=== PATIENT | female | born 1955 | race Caucasian/White ===

== ENCOUNTER 2018-07-25 13:15 | Outpatient (REF) | payer MEDICAID, SELFPAY | END 2018-07-25 13:35 | LOC: NCHCN 13:15 | PROVIDERS: PCP Nurse Practitioner Family; Visit Provider Nurse Practitioner Family | DX: N39.0 Urinary tract infection, site not specified (principal) | CPT/HCPCS: 87077; 87086; 87186 ==

== ENCOUNTER 2018-08-11 15:07 | Outpatient (REF) | payer MEDICAID, SELFPAY ==
[2018-08-11 21:24] LABS: Abs Immature Grans 0.01 k/cumm (0.0-0.09); Absolute Basophil Count 0.04 k/cumm (0.0-0.2); Absolute Eosinophil Count 0.23 k/cumm (0.0-0.7); Absolute Lymphocyte Count 3.81 k/cumm (1.2-3.4); Absolute Neutrophil Count 3.49 k/cumm (1.2-6.7); Basophils % 0.5; Eosinophils % 2.8; HCT 36.5 % (36.0-46.0); HGB 11.5 g/dL (12.0-15.5); Immature Grans % 0.1; Lymphocytes % 46.6; Mean Corp. HGB Concentration 31.5 g/dL (32.0-36.0); Mean Corpuscular Hemoglobin 28.3 pg (27.0-33.0); Mean Corpuscular Volume 89.9 fL (80-95); Mean Platelet Volume 11.6 fL (8.0-11.0); Monocytes % 7.3; Neutrophils % 42.7; Platelet Count 273 x1000/uL (130-400); RBC 4.06 m/cumm (4.00-5.20); RBC Distribution Width 14.6 % (11.7-14.6); White Blood Cell Count 8.18 k/cumm (4.4-10.8)
[2018-08-11 21:34] LABS: ALT 31 U/L (12-78); AST 50 U/L (15-37); Albumin 3.4 g/dL (3.4-5.0); Alkaline Phosphatase 115 U/L (46-116); Anion Gap 8.7 mmol/L (3-11); BUN 28 mg/dL (7-18); Bilirubin, Total 0.4 mg/dL (0.2-1.0); CO2 27.3 mmol/L (21.0-32.0); CREATININE 1.27 mg/dL (0.55-1.02); Chloride 106 mmol/L (98-107); Estimated GFR 42.78 (mL/min/1.73m2); Glucose 111 mg/dL (70-100); Lipase 182 U/L (73-393); Potassium 4.4 mmol/L (3.5-5.1); Sodium 142 mmol/L (136-145); Total Protein 7.2 g/dL (6.4-8.2)
== END 2018-08-11 15:27 ==
LOC: NCHCN 15:07
PROVIDERS: PCP Nurse Practitioner Family; Visit Provider Nurse Practitioner Family
DX: R10.11 Right upper quadrant pain (principal)
CPT/HCPCS: 80053; 83690; 87077; 85025; 87086; 87186

== ENCOUNTER 2018-10-11 13:59 | Outpatient (REF) | payer MEDICAID, SELFPAY | END 2018-10-11 14:19 | LOC: NCHCN 13:59 | PROVIDERS: PCP Nurse Practitioner Family; Visit Provider Family Medicine | DX: N39.0 Urinary tract infection, site not specified (principal); R30.0 Dysuria | CPT/HCPCS: 87077; 87086; 87186 ==

== ENCOUNTER 2019-01-28 14:49 | Outpatient (REF) | payer MEDICAID, SELFPAY | END 2019-01-28 15:09 | LOC: NCHCN 14:49 | PROVIDERS: PCP Nurse Practitioner Family; Visit Provider Family Medicine | DX: N39.0 Urinary tract infection, site not specified (principal) | CPT/HCPCS: 87077; 87086; 87186 ==

== ENCOUNTER 2019-04-26 14:23 | Outpatient (REF) | payer MEDICAID, SELFPAY ==
[2019-04-26 22:24] LABS: ALT 29 U/L (12-78); AST 46 U/L (15-37); Albumin 3.3 g/dL (3.4-5.0); Alkaline Phosphatase 112 U/L (46-116); Anion Gap 9.3 mmol/L (3-11); BUN 24 mg/dL (7-18); Bilirubin, Total 0.4 mg/dL (0.2-1.0); CO2 27.7 mmol/L (21.0-32.0); CREATININE 1.22 mg/dL (0.55-1.02); Chloride 104 mmol/L (98-107); Estimated GFR 44.66 (mL/min/1.73m2); Glucose 240 mg/dL (70-100); Potassium 4.6 mmol/L (3.5-5.1); Sodium 141 mmol/L (136-145); Total Protein 7.4 g/dL (6.4-8.2); Vitamin B12 406 pg/mL (193-986)
== END 2019-04-26 14:43 ==
LOC: NCHCN 14:23
PROVIDERS: PCP Nurse Practitioner Family; Visit Provider Registered Nurse
DX: R82.90 Unspecified abnormal findings in urine (principal); F39 Unspecified mood [affective] disorder
CPT/HCPCS: 80053; 87077; 82607; 84443; 87086; 87186

== ENCOUNTER 2019-08-30 22:39 | Outpatient (REF) | payer MEDICAID, SELFPAY | END 2019-08-30 22:59 | LOC: NCHCN 22:39 | PROVIDERS: PCP Nurse Practitioner Family; Visit Provider Family Medicine | DX: N39.0 Urinary tract infection, site not specified (principal) | CPT/HCPCS: 87077; 87086; 87186 ==

== ENCOUNTER 2019-10-29 17:35 | Outpatient (REF) | payer MEDICAID, SELFPAY ==
[2019-10-29 21:57] LABS: Anion Gap 7.4 mmol/L (3-11); BUN 28 mg/dL (7-18); CO2 29.6 mmol/L (21.0-32.0); CREATININE 1.22 mg/dL (0.55-1.02); Chloride 103 mmol/L (98-107); Estimated GFR 44.66 (mL/min/1.73m2); Glucose 159 mg/dL (74-106); Potassium 4.5 mmol/L (3.5-5.1); Sodium 140 mmol/L (136-145); Uric Acid 9.5 mg/dL (2.6-6.0)
[2019-10-29 22:22] LABS: ESR 73 mm/hr (0-30)
== END 2019-10-29 17:55 ==
LOC: NCHCN 17:35
PROVIDERS: PCP Nurse Practitioner Family; Visit Provider Nurse Practitioner Family
DX: N39.0 Urinary tract infection, site not specified (principal); R30.9 Painful micturition, unspecified; M1A.00X0 Idiopathic chronic gout, unspecified site, without tophus (tophi)
CPT/HCPCS: 80048; 85652; 87077; 84550; 86140; 87086; 87186

== ENCOUNTER 2019-11-22 17:07 | Outpatient (REF) | payer MEDICAID, SELFPAY ==
[2019-11-22 21:51] LABS: Bacteria Many HPF (Negative); C & S Indicated? C&S Done As Ordered; Epithelial Cells Few HPF (Negative); RBC 0-2 HPF (0-2); WBC 20-50 HPF (0-5)
== END 2019-11-22 17:27 ==
LOC: NCHCN 17:07
PROVIDERS: PCP Nurse Practitioner Family; Visit Provider Registered Nurse
DX: N39.0 Urinary tract infection, site not specified (principal)
CPT/HCPCS: 87077; 81015; 87086; 87186

== ENCOUNTER 2019-12-26 12:00 | Outpatient (REF) | payer MEDICAID, SELFPAY | END 2019-12-26 12:20 | LOC: NCHCN 12:00 | PROVIDERS: PCP Nurse Practitioner Family; Visit Provider Internal Medicine | DX: R30.0 Dysuria (principal) | CPT/HCPCS: 87077; 87086; 87186 ==

== ENCOUNTER 2020-01-09 14:53 | Outpatient (REF) | payer MEDICAID, SELFPAY ==
[2020-01-09 21:22] LABS: Anion Gap 7.9 mmol/L (3-11); BUN 18 mg/dL (7-18); CO2 28.1 mmol/L (21.0-32.0); CREATININE 1.32 mg/dL (0.55-1.02); Calcium 8.9 mg/dL (8.5-10.1); Chloride 104 mmol/L (98-107); Estimated GFR 40.65 (mL/min/1.73m2); Glucose 205 mg/dL (74-106); Potassium 4.1 mmol/L (3.5-5.1); Sodium 140 mmol/L (136-145)
== END 2020-01-09 15:13 ==
LOC: NCHCN 14:53
PROVIDERS: PCP Nurse Practitioner Family; Visit Provider Nurse Practitioner Family
DX: I10 Essential (primary) hypertension (principal)
CPT/HCPCS: 80048

== ENCOUNTER 2020-01-21 12:42 | Outpatient (REF) | payer MEDICAID, SELFPAY ==
[2020-01-21 20:42] LABS: Anion Gap 6.9 mmol/L (3-11); BUN 14 mg/dL (7-18); CO2 28.1 mmol/L (21.0-32.0); Calcium 8.4 mg/dL (8.5-10.1); Chloride 106 mmol/L (98-107); Estimated GFR 50.17 (mL/min/1.73m2); Glucose 142 mg/dL (74-106); Potassium 4.3 mmol/L (3.5-5.1); Sodium 141 mmol/L (136-145)
== END 2020-01-21 13:02 ==
LOC: NCHCN 12:42
PROVIDERS: PCP Nurse Practitioner Family; Visit Provider Nurse Practitioner Family
DX: I10 Essential (primary) hypertension (principal)
CPT/HCPCS: 80048

== ENCOUNTER 2020-03-27 22:56 | Outpatient (REF) | payer MEDICAID, SELFPAY ==
[2020-03-27 21:13] LABS: HCT 38.5 % (36.0-46.0); HGB 12.1 g/dL (12.0-15.5); Mean Corp. HGB Concentration 31.4 g/dL (32.0-36.0); Mean Corpuscular Hemoglobin 27.8 pg (27.0-33.0); Mean Corpuscular Volume 88.5 fL (80-95); Mean Platelet Volume 11.3 fL (8.0-11.0); Platelet Count 302 x1000/uL (130-400); RBC 4.35 m/cumm (4.00-5.20); RBC Distribution Width 15.5 % (11.7-14.6); White Blood Cell Count 10.94 k/cumm (4.4-10.8)
[2020-03-27 21:26] LABS: ALT 30 U/L (14-59); AST 140 U/L (15-37); Albumin 3.4 g/dL (3.4-5.0); Alkaline Phosphatase 96 U/L (46-116); Anion Gap 8.5 mmol/L (3-11); BUN 25 mg/dL (7-18); Bilirubin, Total 0.6 mg/dL (0.2-1.0); CO2 28.5 mmol/L (21.0-32.0); CREATININE 1.36 mg/dL (0.55-1.02); Chloride 102 mmol/L (98-107); Estimated GFR 39.27 (mL/min/1.73m2); Glucose 168 mg/dL (74-106); NT-proBNP 163 pg/mL (<300); Potassium 4.6 mmol/L (3.5-5.1); Sodium 139 mmol/L (136-145); Total Protein 7.6 g/dL (6.4-8.2)
== END 2020-03-27 23:16 ==
LOC: NCHCN 22:56
PROVIDERS: PCP Nurse Practitioner Family; Visit Provider Registered Nurse
DX: R60.9 Edema, unspecified (principal); N18.3 Chronic kidney disease, stage 3 (moderate); H35.039 Hypertensive retinopathy, unspecified eye
CPT/HCPCS: 80053; 85027; 83880

== ENCOUNTER 2020-04-14 13:56 | Outpatient (REF) | payer MEDICAID, SELFPAY ==
[2020-04-14 21:24] LABS: Anion Gap 7.7 mmol/L (3-11); BUN 23 mg/dL (7-18); CO2 30.3 mmol/L (21.0-32.0); CREATININE 1.22 mg/dL (0.55-1.02); Calcium 8.8 mg/dL (8.5-10.1); Chloride 103 mmol/L (98-107); Estimated GFR 44.52 (mL/min/1.73m2); Glucose 188 mg/dL (74-106); Sodium 141 mmol/L (136-145)
== END 2020-04-14 14:16 ==
LOC: NCHCN 13:56
PROVIDERS: PCP Nurse Practitioner Family; Visit Provider Family Medicine
DX: I10 Essential (primary) hypertension (principal)
CPT/HCPCS: 80048

== ENCOUNTER 2020-05-09 20:28 | Outpatient (REF) | payer MEDICAID, SELFPAY | END 2020-05-09 20:48 | LOC: NCHCN 20:28 | PROVIDERS: PCP Nurse Practitioner Family; Visit Provider Family Medicine | DX: R30.9 Painful micturition, unspecified (principal) | CPT/HCPCS: 87077; 87086; 87186 ==

== ENCOUNTER 2020-05-16 15:19 | Outpatient (REF) | payer MEDICAID, SELFPAY | END 2020-05-16 15:39 | LOC: NCHCN 15:19 | PROVIDERS: PCP Nurse Practitioner Family; Visit Provider Family Medicine | DX: N39.0 Urinary tract infection, site not specified (principal) | CPT/HCPCS: 87086 ==

== ENCOUNTER 2020-05-30 13:12 | Outpatient (REF) | payer MEDICAID, SELFPAY ==
[2020-05-30 23:51] LABS: Bacteria Many HPF (Negative); C & S Indicated? C&S Done As Ordered; Crystals Negative HPF (Negative); Epithelial Cells Rare HPF (Negative); Mucus Negative (Negative)
== END 2020-05-30 13:32 ==
LOC: NCHCN 13:12
PROVIDERS: PCP Nurse Practitioner Family; Visit Provider Registered Nurse
DX: N39.0 Urinary tract infection, site not specified (principal); R30.9 Painful micturition, unspecified
CPT/HCPCS: 87077; 81015; 87086; 87186

== ENCOUNTER 2020-07-23 14:33 | Outpatient (REF) | payer MEDICAID, SELFPAY ==
[2020-07-26 21:57] LABS: Patient Race White; SARS-CoV-2 RNA Undetected (Undetected); SARS-CoV-2 Specimen Source Nasal
== END 2020-07-23 14:53 ==
LOC: NCHCN 14:33
PROVIDERS: PCP Nurse Practitioner Family; Visit Provider Family Medicine
DX: R05 Cough (principal)
CPT/HCPCS: U0003

== ENCOUNTER 2020-07-30 11:15 | Outpatient (REF) | payer MEDICAID, SELFPAY ==
[2020-07-30 22:16] LABS: COMMENT (LAB VIEW ONLY) 128.27 mg/dL; Microalb ug/mg Crea 33.1 ug/mg Cr
== END 2020-07-30 11:35 ==
LOC: NCHCN 11:15
PROVIDERS: PCP Nurse Practitioner Family; Visit Provider Family Medicine
DX: E11.8 Type 2 diabetes mellitus with unspecified complications (principal); I10 Essential (primary) hypertension
CPT/HCPCS: 82043; 82570

== ENCOUNTER 2020-09-19 22:39 | Outpatient (REF) | payer MEDICAID, SELFPAY ==
[2020-09-19 20:53] LABS: Anion Gap 10.2 mmol/L (3-11); BUN 26 mg/dL (7-18); CO2 25.8 mmol/L (21.0-32.0); CREATININE 1.38 mg/dL (0.55-1.02); Calcium 8.7 mg/dL (8.5-10.1); Calculated LDL 211 mg/dL (<100); Chloride 101 mmol/L (98-107); Cholesterol 283 mg/dL (<200); Estimated GFR 38.61 (mL/min/1.73m2); Glucose 115 mg/dL (74-106); HDL Cholesterol 40 mg/dL (40-60); Sodium 137 mmol/L (136-145); Triglyceride 164 mg/dL (<150)
== END 2020-09-19 22:59 ==
LOC: NCHCN 22:39
PROVIDERS: PCP Family Medicine; Visit Provider Family Medicine
DX: E78.5 Hyperlipidemia, unspecified (principal); E11.8 Type 2 diabetes mellitus with unspecified complications
CPT/HCPCS: 80048; 80061

== ENCOUNTER 2021-03-19 16:04 | Outpatient (REF) | payer MEDICAID, SELFPAY ==
[2021-03-19 20:30] LABS: HCT 36.9 % (36.0-46.0); HGB 11.6 g/dL (11.2-15.7); MCH 28.5 pg (27.0-33.0); MCHC 31.4 % (32.0-36.0); MCV 90.7 fL (80-95); MPV 11.6 fL (8.0-11.0); Platelet Count 296 10^3/uL (130-400); RBC 4.07 10^6/uL (3.93-5.22); RDW 15.1 % (11.7-14.6); RDW-SD 49.7 fL; WBC 10.76 10^3/uL (4.4-10.8)
== END 2021-03-19 16:05 | disposition home or self-care (01) ==
LOC: NCHCN 16:04
PROVIDERS: PCP Family Medicine; Visit Provider Nurse Practitioner Family
DX: N93.9 Abnormal uterine and vaginal bleeding, unspecified (principal)
CPT/HCPCS: 85027

== ENCOUNTER 2021-03-23 17:23 | Outpatient (REF) | payer MEDICAID, SELFPAY ==
[2021-03-23 22:03] LABS: Iron 37 ug/dL (50-170)
== END 2021-03-23 17:24 | disposition home or self-care (01) ==
LOC: NCHCN 17:23
PROVIDERS: PCP Family Medicine; Visit Provider Family Medicine
DX: D64.9 Anemia, unspecified (principal); N93.9 Abnormal uterine and vaginal bleeding, unspecified
CPT/HCPCS: 83540

== ENCOUNTER 2021-04-28 16:47 | Outpatient (REF) | payer MEDICAID, SELFPAY ==
[2021-04-28 21:21] LABS: HCT 36.5 % (36.0-46.0); HGB 11.3 g/dL (11.2-15.7); MCV 90.6 fL (80-95); MPV 11.8 fL (8.0-11.0); Platelet Count 274 10^3/uL (130-400); RBC 4.03 10^6/uL (3.93-5.22); RDW-SD 53.4 fL; WBC 13.16 10^3/uL (4.4-10.8)
[2021-04-28 22:28] LABS: Anion Gap 10.4 mmol/L (3-11); BUN 20 mg/dL (7-18); CO2 26.6 mmol/L (21.0-32.0); CREATININE 1.5 mg/dL (0.55-1.02); Calcium 9.1 mg/dL (8.5-10.1); Calculated LDL 114 mg/dL (<100); Chloride 107 mmol/L (98-107); Cholesterol 186 mg/dL (<200); Estimated GFR 34.96 (mL/min/1.73m2); Glucose 128 mg/dL (74-106); HDL Cholesterol 33 mg/dL (40-60); Potassium 4.3 mmol/L (3.5-5.1); Sodium 144 mmol/L (136-145); Triglyceride 197 mg/dL (<150)
[2021-04-28 23:45] LABS: Iron 46 ug/dL (50-170); Total Iron Binding Capacity 303 ug/dL (250-450); Transferrin Sat 15 % (15-50)
== END 2021-04-28 16:48 | disposition home or self-care (01) ==
LOC: NCHCN 16:47
PROVIDERS: PCP Family Medicine; Visit Provider Family Medicine
DX: E78.5 Hyperlipidemia, unspecified (principal); R31.9 Hematuria, unspecified; I10 Essential (primary) hypertension
CPT/HCPCS: 80048; 80061; 85027; 83540; 83550

== ENCOUNTER 2021-06-30 23:08 | Outpatient (REF) | payer MEDICAID, SELFPAY ==
[2021-06-30 22:55] LABS: COMMENT (LAB VIEW ONLY) 48.57 mg/dL; Microalb ug/mg Crea 11.3 ug/mg Cr
== END 2021-06-30 23:09 | disposition home or self-care (01) ==
LOC: NCHCN 23:08
PROVIDERS: PCP Family Medicine; Visit Provider Family Medicine
DX: E11.8 Type 2 diabetes mellitus with unspecified complications (principal); R80.9 Proteinuria, unspecified
CPT/HCPCS: 82043; 82570

== ENCOUNTER 2021-08-11 21:32 | Outpatient (REF) | payer MEDICAID, SELFPAY | END 2021-08-11 21:33 | disposition home or self-care (01) | LOC: NCHCN 21:32 | PROVIDERS: PCP Family Medicine; Visit Provider Family Medicine | DX: R30.0 Dysuria (principal); R31.9 Hematuria, unspecified | CPT/HCPCS: 87077; 87086; 87186 ==

== ENCOUNTER 2021-08-24 16:33 | Outpatient (REF) | payer MEDICAID, SELFPAY ==
[2021-08-24 22:14] LABS: Uric Acid 6.4 mg/dL (2.6-6.0)
== END 2021-08-24 16:34 | disposition home or self-care (01) ==
LOC: NCHCN 16:33
PROVIDERS: PCP Family Medicine; Visit Provider Family Medicine
DX: M1A.09X0 Idiopathic chronic gout, multiple sites, without tophus (tophi) (principal)
CPT/HCPCS: 84550

== ENCOUNTER 2021-09-30 16:09 | Outpatient (REF) | payer MEDICAID, SELFPAY ==
[2021-09-30 21:50] LABS: Anion Gap 5.9 mmol/L (3-11); BUN 21 mg/dL (7-18); CO2 29.1 mmol/L (21.0-32.0); CREATININE 1.3 mg/dL (0.55-1.02); Calcium 8.9 mg/dL (8.5-10.1); Chloride 106 mmol/L (98-107); Estimated GFR 41.24 (mL/min/1.73m2); Glucose 292 mg/dL (74-106); Potassium 4.3 mmol/L (3.5-5.1); Sodium 141 mmol/L (136-145)
== END 2021-09-30 16:10 | disposition home or self-care (01) ==
LOC: NCHCN 16:09
PROVIDERS: PCP Family Medicine; Visit Provider Registered Nurse
DX: I10 Essential (primary) hypertension (principal)
CPT/HCPCS: 80048

== ENCOUNTER 2022-04-07 16:09 | Outpatient (REF) | payer MEDICARE, MEDICAID, SELFPAY ==
[2022-04-07 15:47] LABS: ALT 26 U/L (14-59); AST 57 U/L (15-37); Albumin 3.1 g/dL (3.4-5.0); Alkaline Phosphatase 94 U/L (46-116); Anion Gap 6.3 mmol/L (3-11); BUN 21 mg/dL (7-18); Bilirubin, Total 0.5 mg/dL (0.2-1.0); CO2 28.7 mmol/L (21.0-32.0); CREATININE 1.3 mg/dL (0.55-1.02); Calcium 8.7 mg/dL (8.5-10.1); Calculated LDL 189 mg/dL (<100); Chloride 101 mmol/L (98-107); Cholesterol 271 mg/dL (<200); Estimated GFR 41.11 (mL/min/1.73m2); Glucose 378 mg/dL (74-106); HDL Cholesterol 40 mg/dL (40-60); Potassium 4.2 mmol/L (3.5-5.1); Sodium 136 mmol/L (136-145); Total Protein 7.5 g/dL (6.4-8.2); Triglyceride 211 mg/dL (<150)
== END 2022-04-07 16:10 | disposition home or self-care (01) ==
LOC: NCHCN 16:09
PROVIDERS: PCP Family Medicine; Visit Provider Family Medicine
DX: E78.5 Hyperlipidemia, unspecified (principal); N18.30 Chronic kidney disease, stage 3 unspecified; E11.8 Type 2 diabetes mellitus with unspecified complications; E66.01 Morbid (severe) obesity due to excess calories
CPT/HCPCS: 80053; 80061; 84443

== ENCOUNTER 2022-06-18 20:07 | Outpatient (REF) | payer MEDICARE, MEDICAID, SELFPAY ==
[2022-06-18 14:58] LABS: HCT 38.4 % (36.0-46.0); HGB 11.9 g/dL (11.2-15.7); MCH 28.5 pg (27.0-33.0); MCV 92 fL (80-95); MPV 10.8 fL (8.0-11.0); Platelet Count 274 10^3/uL (130-400); RBC 4.17 10^6/uL (3.93-5.22); RDW 13.6 % (11.7-14.6); RDW-SD 46.2 fL; WBC 8.42 10^3/uL (4.4-10.8)
[2022-06-18 15:10] LABS: Iron 59 ug/dL (50-170); Total Iron Binding Capacity 255 ug/dL (250-450); Transferrin Sat 23 % (15-50)
[2022-06-18 15:36] LABS: Hemoglobin A1C 11.6 % (<5.7)
[2022-06-18 15:48] LABS: ALT 25 U/L (14-59); AST 59 U/L (15-37); Alkaline Phosphatase 87 U/L (46-116); BUN 20 mg/dL (7-18); Bilirubin, Total 0.5 mg/dL (0.2-1.0); CREATININE 1.3 mg/dL (0.55-1.02); Calcium 8.6 mg/dL (8.5-10.1); Chloride 104 mmol/L (98-107); Estimated GFR 45.63 (mL/min/1.73m2); Ferritin 75 ng/mL (8-252); Glucose 218 mg/dL (74-106); Magnesium 1.9 mg/dL (1.8-2.4); Potassium 4.1 mmol/L (3.5-5.1); Sodium 142 mmol/L (136-145); Total Protein 7.9 g/dL (6.4-8.2); Vitamin B12 294 pg/mL (193-986)
[2022-06-21 11:24] LABS: Transferrin 220 mg/dL (201-352)
== END 2022-06-18 20:08 | disposition home or self-care (01) ==
LOC: NCHCN 20:07
PROVIDERS: PCP Family Medicine; Visit Provider Family Medicine
DX: E11.8 Type 2 diabetes mellitus with unspecified complications (principal); R30.0 Dysuria; D64.9 Anemia, unspecified; E11.40 Type 2 diabetes mellitus with diabetic neuropathy, unspecified; E66.01 Morbid (severe) obesity due to excess calories
CPT/HCPCS: 80053; 85027; 87077; 82607; 82728; 83036; 83540; 83550; 83735; 84466; 87086; 87186

== ENCOUNTER 2022-07-12 16:14 | Outpatient (REF) | payer MEDICARE, MEDICAID, SELFPAY | END 2022-07-12 16:15 | disposition home or self-care (01) | LOC: NCHCN 16:14 | PROVIDERS: PCP Family Medicine; Visit Provider Nurse Practitioner Family | DX: N39.0 Urinary tract infection, site not specified (principal) | CPT/HCPCS: 87077; 87086; 87186 ==

== ENCOUNTER 2022-08-12 13:56 | Outpatient (REF) | payer MEDICARE, MEDICAID, SELFPAY ==
[2022-08-12 21:51] LABS: Bilirubin Negative (Negative); Blood Trace-intact (Negative); Clarity Cloudy (Clear); Glucose 100 mg/dL (Negative); Ketones Negative (Negative); Leukocyte Esterase Trace (Negative); Nitrite Negative (Negative); Urobilinogen 0.2 EU/dL (Up TO 0.2)
[2022-08-12 22:00] LABS: Bacteria Many HPF (Negative); C & S Indicated? Yes; Casts Negative LPF (Negative); Crystals Negative HPF (Negative); Epithelial Cells Few HPF (Negative); Mucus Negative (Negative); RBC 0-2 HPF (0-2)
== END 2022-08-12 13:57 | disposition home or self-care (01) ==
LOC: NCHCN 13:56
PROVIDERS: PCP Family Medicine; Visit Provider Family Medicine
DX: R31.9 Hematuria, unspecified (principal); R30.9 Painful micturition, unspecified
CPT/HCPCS: 87077; 81003; 81015; 87086; 87186

== ENCOUNTER 2022-08-20 18:16 | Outpatient (REF) | payer MEDICARE, MEDICAID, SELFPAY | END 2022-08-20 18:17 | disposition home or self-care (01) | LOC: NCHCN 18:16 | PROVIDERS: PCP Family Medicine; Visit Provider Family Medicine | DX: N39.0 Urinary tract infection, site not specified (principal) | CPT/HCPCS: 87086 ==

== ENCOUNTER 2022-12-17 12:14 | Outpatient (REF) | payer MEDICARE, MEDICAID, SELFPAY | END 2022-12-17 12:15 | disposition home or self-care (01) | LOC: NCHCN 12:14 | PROVIDERS: PCP Family Medicine; Visit Provider Family Medicine | DX: N39.0 Urinary tract infection, site not specified (principal) | CPT/HCPCS: 87077; 87086; 87186 ==

== ENCOUNTER 2023-01-07 16:26 | Outpatient (REF) | payer MEDICARE, MEDICAID, SELFPAY | END 2023-01-07 16:27 | disposition home or self-care (01) | LOC: NCHCN 16:26 | PROVIDERS: PCP Family Medicine; Visit Provider Family Medicine | DX: N39.0 Urinary tract infection, site not specified (principal) | CPT/HCPCS: 87077; 87086; 87186 ==

== ENCOUNTER 2023-04-06 17:22 | Outpatient (REF) | payer MEDICARE, MEDICAID, SELFPAY ==
[2023-04-06 22:04] LABS: Bilirubin Negative (Negative); Blood Small (Negative); Clarity Sl Cloudy (Clear); Glucose >=1000 mg/dL (Negative); Ketones Negative (Negative); Leukocyte Esterase Trace (Negative); Nitrite Positive (Negative); Specific Gravity 1.015 (1.005-1.025); Urobilinogen 0.2 mg/dL (Up to 0.2); pH 5.5 (5-8)
[2023-04-06 22:19] LABS: COMMENT (LAB VIEW ONLY) 71.53 mg/dL; Microalb ug/mg Crea 99.1 ug/mg Cr
[2023-04-06 22:25] LABS: Bacteria Many HPF (Negative); C & S Indicated? Yes; Casts Negative LPF (Negative); Crystals Negative HPF (Negative); Epithelial Cells Rare HPF (Negative); Mucus Negative (Negative)
== END 2023-04-06 17:23 | disposition home or self-care (01) ==
LOC: NCHCN 17:22
PROVIDERS: PCP Family Medicine; Visit Provider Family Medicine
DX: E11.8 Type 2 diabetes mellitus with unspecified complications (principal); N39.0 Urinary tract infection, site not specified
CPT/HCPCS: 87077; 81003; 81015; 82043; 82570; 87086; 87186

== ENCOUNTER 2023-04-22 20:57 | Outpatient (REF) | payer MEDICARE, MEDICAID, SELFPAY | END 2023-04-22 20:58 | disposition home or self-care (01) | LOC: NCHCN 20:57 | PROVIDERS: PCP Family Medicine; Visit Provider Family Medicine | DX: R32 Unspecified urinary incontinence (principal); R82.998 Other abnormal findings in urine | CPT/HCPCS: 87077; 87086; 87186 ==

== ENCOUNTER 2023-05-05 18:44 | Outpatient (REF) | payer MEDICARE, MEDICAID, SELFPAY | END 2023-05-05 18:45 | disposition home or self-care (01) | LOC: NCHCN 18:44 | PROVIDERS: PCP Family Medicine; Visit Provider Nurse Practitioner Family | DX: N39.0 Urinary tract infection, site not specified (principal); R82.998 Other abnormal findings in urine | CPT/HCPCS: 87077; 87086; 87186 ==

== ENCOUNTER 2023-05-24 16:09 | Outpatient (REF) | payer MEDICARE, MEDICAID, SELFPAY | END 2023-05-24 16:10 | disposition home or self-care (01) | LOC: NCHCN 16:09 | PROVIDERS: PCP Family Medicine; Visit Provider Family Medicine | DX: N39.0 Urinary tract infection, site not specified (principal) | CPT/HCPCS: 87077; 87086; 87186 ==

== ENCOUNTER 2023-11-29 09:13 | Outpatient (REF) | payer MEDICARE, MEDICAID, SELFPAY | END 2023-11-29 09:14 | disposition home or self-care (01) | LOC: NCHCN 09:13 | PROVIDERS: PCP Family Medicine; Referring Provider Physician Assistant; Visit Provider Physician Assistant | DX: R30.0 Dysuria (principal) | CPT/HCPCS: 87077; 87086; 87186 ==

== ENCOUNTER 2023-12-23 11:40 | Outpatient (REF) | payer MEDICARE, MEDICAID, SELFPAY ==
[2023-12-23 14:39] LABS: Anion Gap 11.7 mmol/L (3-11); BUN 42 mg/dL (7-18); CO2 24.3 mmol/L (21.0-32.0); CREATININE 2.2 mg/dL (0.55-1.02); Calcium 9.2 mg/dL (8.5-10.1); Chloride 103 mmol/L (98-107); Estimated GFR 23.97 (mL/min/1.73m2); Glucose 132 mg/dL (74-106); Sodium 139 mmol/L (136-145)
== END 2023-12-23 11:41 | disposition home or self-care (01) ==
LOC: NCHCN 11:40
PROVIDERS: PCP Family Medicine; Referring Provider Family Medicine; Visit Provider Family Medicine
DX: N18.30 Chronic kidney disease, stage 3 unspecified (principal); N39.0 Urinary tract infection, site not specified
CPT/HCPCS: 80048; 87077; 87086; 87186

== ENCOUNTER 2024-01-26 16:41 | Outpatient (REF) | payer MEDICARE, MEDICAID, SELFPAY | END 2024-01-26 16:42 | disposition home or self-care (01) | LOC: NCHCN 16:41 | PROVIDERS: PCP Family Medicine; Visit Provider Family Medicine | DX: R39.89 Other symptoms and signs involving the genitourinary system (principal); N39.0 Urinary tract infection, site not specified | CPT/HCPCS: 87077; 87086; 87186 ==

== ENCOUNTER 2024-02-03 15:30 | Outpatient (REF) | payer MEDICARE, MEDICAID, SELFPAY ==
[2024-02-03 21:21] LABS: Anion Gap 9.2 mmol/L (3-11); BUN 29 mg/dL (7-18); CO2 29.8 mmol/L (21.0-32.0); CREATININE 2.1 mg/dL (0.55-1.02); Calcium 8.9 mg/dL (8.5-10.1); Chloride 102 mmol/L (98-107); Estimated GFR 25.35 (mL/min/1.73m2); Glucose 289 mg/dL (74-106); Potassium 4.2 mmol/L (3.5-5.1); Sodium 141 mmol/L (136-145)
[2024-02-03 21:32] LABS: Microalb ug/mg Crea 95.1 ug/mg Cr
== END 2024-02-03 15:31 | disposition home or self-care (01) ==
LOC: NCHCN 15:30
PROVIDERS: PCP Family Medicine; Visit Provider Registered Nurse
DX: N17.9 Acute kidney failure, unspecified (principal); E11.8 Type 2 diabetes mellitus with unspecified complications
CPT/HCPCS: 80048; 82043; 82570

== ENCOUNTER 2024-02-23 21:28 | Outpatient (REF) | payer MEDICARE, MEDICAID, SELFPAY ==
[2024-02-23 21:53] LABS: Anion Gap 6.9 mmol/L (3-11); BUN 19 mg/dL (7-18); CO2 28.1 mmol/L (21.0-32.0); CREATININE 1.8 mg/dL (0.55-1.02); Calcium 8.9 mg/dL (8.5-10.1); Chloride 104 mmol/L (98-107); Glucose 118 mg/dL (74-106); Potassium 4.3 mmol/L (3.5-5.1); Sodium 139 mmol/L (136-145)
== END 2024-02-23 21:29 | disposition home or self-care (01) ==
LOC: NCHCN 21:28
PROVIDERS: PCP Family Medicine; Visit Provider Family Medicine
DX: N17.9 Acute kidney failure, unspecified (principal)
CPT/HCPCS: 80048

== ENCOUNTER 2024-05-07 17:06 | Outpatient (REF) | payer MEDICARE, MEDICAID, SELFPAY | END 2024-05-07 17:07 | disposition home or self-care (01) | LOC: NCHCN 17:06 | PROVIDERS: PCP Family Medicine; Visit Provider Nurse Practitioner Family | DX: N39.0 Urinary tract infection, site not specified (principal) | CPT/HCPCS: 87077; 87086; 87186 ==

== ENCOUNTER 2024-06-13 18:06 | Outpatient (REF) | payer MEDICARE, MEDICAID, SELFPAY ==
[2024-06-13 21:53] LABS: Bilirubin Negative (Negative); Blood Negative (Negative); Clarity Clear (Clear); Glucose Negative (Negative); Ketones Negative (Negative); Leukocyte Esterase Trace (Negative); Nitrite Positive (Negative); Urobilinogen 0.2 mg/dL (Up to 0.2); pH 5.5 (5-8)
[2024-06-13 22:11] LABS: Epithelial Cells Rare HPF (Negative); Other Cells Rare Renal (Negative); RBC Negative HPF (0-2)
[2024-06-13 22:12] LABS: Bacteria Many HPF (Negative); C & S Indicated? C&S Done As Ordered; Casts Negative LPF (Negative); Crystals Negative HPF (Negative); Mucus Negative (Negative)
== END 2024-06-13 18:07 | disposition home or self-care (01) ==
LOC: NCHCN 18:06
PROVIDERS: PCP Family Medicine; Visit Provider Family Medicine
DX: N39.0 Urinary tract infection, site not specified (principal)
CPT/HCPCS: 87077; 81003; 81015; 87086; 87186

== ENCOUNTER 2024-07-03 13:33 | Outpatient (REF) | payer MEDICARE, MEDICAID, SELFPAY | END 2024-07-03 13:34 | disposition home or self-care (01) | LOC: NCHCN 13:33 | PROVIDERS: PCP Family Medicine; Visit Provider Family Medicine | DX: N39.0 Urinary tract infection, site not specified (principal); R82.89 Other abnormal findings on cytological and histological examination of urine | CPT/HCPCS: 87086 ==

== ENCOUNTER 2024-08-10 16:07 | Outpatient (REF) | payer MEDICARE, MEDICAID, SELFPAY ==
[2024-08-10 20:52] LABS: Anion Gap 10.1 mmol/L (3-11); BUN 26 mg/dL (7-18); CO2 26.9 mmol/L (21.0-32.0); CREATININE 2.1 mg/dL (0.55-1.02); Calcium 9.4 mg/dL (8.5-10.1); Chloride 108 mmol/L (98-107); Estimated GFR 25.35 (mL/min/1.73m2); Glucose 100 mg/dL (74-106); Potassium 4.9 mmol/L (3.5-5.1); Sodium 145 mmol/L (136-145)
== END 2024-08-10 16:08 | disposition home or self-care (01) ==
LOC: NCHCN 16:07
PROVIDERS: PCP Family Medicine; Visit Provider Family Medicine
DX: I10 Essential (primary) hypertension (principal)
CPT/HCPCS: 80048

== ENCOUNTER 2024-12-10 12:28 | Outpatient (REF) | payer MEDICARE, MEDICAID, SELFPAY ==
[2024-12-10 16:31] LABS: ALT 8 U/L (14-59); AST 38 U/L (15-37); Albumin 3.1 g/dL (3.4-5.0); Alkaline Phosphatase 100 U/L (46-116); Anion Gap 6.5 mmol/L (3-11); BUN 38 mg/dL (7-18); CO2 29.5 mmol/L (21.0-32.0); CREATININE 1.9 mg/dL (0.55-1.02); Calcium 8.6 mg/dL (8.5-10.1); Chloride 111 mmol/L (98-107); Estimated GFR 28.41 (mL/min/1.73m2); Glucose 108 mg/dL (74-106); Potassium 4.8 mmol/L (3.5-5.1); Sodium 147 mmol/L (136-145); Total Protein 7.1 g/dL (6.4-8.2)
[2024-12-10 17:15] LABS: Uric Acid 8.3 mg/dL (2.6-6.0)
== END 2024-12-10 12:29 | disposition home or self-care (01) ==
LOC: NCHCN 12:28
PROVIDERS: PCP Family Medicine; Visit Provider Family Medicine
DX: N18.4 Chronic kidney disease, stage 4 (severe) (principal); M10.00 Idiopathic gout, unspecified site
CPT/HCPCS: 80053; 84550

== ENCOUNTER 2024-12-17 15:25 | Outpatient (REF) | payer MEDICARE, MEDICAID, SELFPAY | END 2024-12-17 15:26 | disposition home or self-care (01) | LOC: NCHCN 15:25 | PROVIDERS: PCP Family Medicine; Visit Provider Family Medicine | DX: N39.0 Urinary tract infection, site not specified (principal); B96.29 Other Escherichia coli [E. coli] as the cause of diseases classified elsewhere | CPT/HCPCS: 87077; 87086; 87186 ==

== ENCOUNTER 2025-02-18 13:54 | Outpatient (REF) | payer MEDICARE, MEDICAID, SELFPAY ==
[2025-02-18 14:55] LABS: HCT 38.8 % (36.0-46.0); HGB 12.3 g/dL (11.2-15.7); MCH 27.1 pg (27.0-33.0); MCHC 31.7 % (32.0-36.0); MCV 86 fL (80-95); MPV 11.8 fL (8.0-11.0); Platelet Count 223 10^3/uL (130-400); RBC 4.54 10^6/uL (3.93-5.22); RDW-SD 46.3 fL
[2025-02-18 15:57] LABS: TSH (W/Ref FT4) 1.92 uIU/mL (0.36-3.74)
[2025-02-19 19:30] LABS: Vitamin B12 241 pg/mL (193-986)
== END 2025-02-18 13:55 | disposition home or self-care (01) ==
LOC: NCHCN 13:54
PROVIDERS: PCP Family Medicine; Visit Provider Family Medicine
DX: G31.84 Mild cognitive impairment of uncertain or unknown etiology (principal); D64.9 Anemia, unspecified
CPT/HCPCS: 85027; 82607; 84443

== ENCOUNTER 2025-05-24 19:00 | Outpatient (REF) | payer MEDICARE, MEDICAID, SELFPAY ==
[2025-05-24 15:31] LABS: Hemoglobin A1C 6.7 % (<5.7)
[2025-05-24 15:44] LABS: COMMENT (LAB VIEW ONLY) 81.79 mg/dL; Microalb ug/mg Crea 69.3 ug/mg Cr
[2025-05-24 15:49] LABS: Anion Gap 11.4 mmol/L (3-11); BUN 27 mg/dL (7-18); CO2 27.6 mmol/L (21.0-32.0); Calcium 9.1 mg/dL (8.5-10.1); Chloride 103 mmol/L (98-107); Estimated GFR 26.71 (mL/min/1.73m2); Folate 6.7 ng/mL (8.6-20.0); Glucose 157 mg/dL (74-106); Potassium 4.0 mmol/L (3.5-5.1); Sodium 142 mmol/L (136-145); Vitamin B12 312 pg/mL (193-986)
== END 2025-05-24 19:01 | disposition home or self-care (01) ==
LOC: NCHCN 19:00
PROVIDERS: PCP Family Medicine; Visit Provider Family Medicine
DX: E11.8 Type 2 diabetes mellitus with unspecified complications (principal)
CPT/HCPCS: 80048; 82043; 82570; 82607; 82746; 83036

== ENCOUNTER 2025-07-25 14:23 | Outpatient (REF) | payer MEDICARE, MEDICAID, SELFPAY ==
[2025-07-25 15:16] LABS: Anion Gap 8.8 mmol/L (3-11); BUN 35 mg/dL (7-18); CO2 26.2 mmol/L (21.0-32.0); Calcium 9.0 mg/dL (8.5-10.1); Chloride 104 mmol/L (98-107); Estimated GFR 22.59 (mL/min/1.73m2); Glucose 139 mg/dL (74-106); Potassium 4.5 mmol/L (3.5-5.1); Sodium 139 mmol/L (136-145)
== END 2025-07-25 14:24 | disposition home or self-care (01) ==
LOC: NCHCN 14:23
PROVIDERS: PCP Family Medicine; Visit Provider Family Medicine
DX: N17.9 Acute kidney failure, unspecified (principal); R39.9 Unspecified symptoms and signs involving the genitourinary system
CPT/HCPCS: 80048; 87077; 87186; 87086

== ENCOUNTER 2025-08-23 13:40 | Outpatient (REF) | payer MEDICARE, MEDICAID, SELFPAY | END 2025-08-23 13:41 | disposition home or self-care (01) | LOC: NCHCN 13:40 | PROVIDERS: PCP Family Medicine; Visit Provider Family Medicine | DX: N39.0 Urinary tract infection, site not specified (principal) | CPT/HCPCS: 87077; 87086; 87186 ==